=== PATIENT | male | born 1950 | race Caucasian/White ===

== ENCOUNTER 2020-05-15 12:35 | Inpatient (IN) | payer MEDICARE, BC ==
[~2020-05-15] VITALS: Ht 182.9 cm; Wt 64.9 kg
[2020-05-15] MEDS ORDERED: CARI350T PO (12:53)
[2020-05-15] MEDS ORDERED: ASPI-612 PO (12:53)
[2020-05-15] MEDS ORDERED: POLY17PO4 PO (12:53)
[2020-05-15] MEDS ORDERED: pain pump (12:53)
[2020-05-15] MEDS ORDERED: HYDR-4354 PO (12:53)
[2020-05-15] MEDS ORDERED: DIAZ10TA PO (12:53)
[2020-05-15] MEDS ORDERED: TRAZ-182 PO (12:53)
[2020-05-15] MEDS ORDERED: GABAPENTIN 300 MG CAPSULE PO ONE (13:00)
[2020-05-15] MEDS ORDERED: CARISOPRODOL 350 MG TABLET PO ONE (13:00)
[2020-05-15] MEDS ORDERED: GABAPENTIN 300 MG CAPSULE ONE (13:02)
[2020-05-15] MEDS ORDERED: CARISOPRODOL 350 MG TABLET ONE (13:03)
--- NOTE | 2020-05-15 13:09 | NUR ---
PATIENT IS AWAKE AND ALERT. STATES HE HS CHRONIC PAIN ANDCANNOT SIT STILL DUE TO CURRENT PAIN. DR GONZALEZ SPOKE TO HIM. MEDS GIVEN ORDERED. PATIENT IS IN A HOSPITAL GOWN WITH SUICEDE PRECAUTIONS TAKEN. I GAVE HIM JUICE AND CRACKERS AND OFFERED TV BUT HE REFUSED TV.
--- NOTE | 2020-05-15 14:22 | NUR ---
patient states pain has diminished significantly. He is aware of pending admission to hospital. Report given to Shana.
[2020-05-15 14:35] VITALS: BP 143/58
[2020-05-15] MEDS ORDERED: MAGNESIUM HYDROXIDE 30 ML LIQUID UDC PO PRN (15:15)
[2020-05-15] MEDS ORDERED: BLOOD SUGAR DIAGNOSTIC 1 EACH STRIP VI ONE (15:15)
[2020-05-15] MEDS ORDERED: MAG HYDROX/AL HYDROX/SIMETH 30 ML LIQUID UDC PO PRN (15:15)
--- NOTE | 2020-05-15 16:15 | NUR ---
Patient was admitted via Wheelchair from ER with Diagnosis of Psychosis and Danger to Self. Patient is Awake, alert x4 and verbally responsive. No signs of distress noted. No SOB. Afebrile. Chronic generalized Body pain. Patient verbalized that he wanted to End his life that is why he cut his Femoral Artery. Picture was taken from left Thigh Wound with Suture. Patient has No SI/HI noted at this time. All needs attended. Kept clean and comfortable. Safety Precaution Initiated. Papa THAO made aware. Will continue to monitor.
--- NOTE | 2020-05-15 18:00 | NUR ---
Patient in bed, awake. Complaining of Severe chronic Sciatic pain on left leg, patient took Soma and Neurontin at ER and it help his Pain. Paged [facility], awaiting for call back.
--- NOTE | 2020-05-15 18:46 | NUR ---
Called [facility] again spoke with Jaquan, awaiting for call back.
[2020-05-15] MEDS: ACETAMINOPHEN 325 MG TABLET PO PRN (19:19)
--- NOTE | 2020-05-15 19:45 | NUR ---
Patient was advised of his 72hrs hold. He was given his advisement as well as his booklet for "Patient's Right to Mental health Facility". Pt is under the care of Dr. Saenz. will continue to monitor.
[2020-05-15] MEDS: GABAPENTIN 300 MG CAPSULE PO SCH (20:05)
--- NOTE | 2020-05-15 20:05 | NUR ---
RECEIVED PATIENT IN HIS ROOM IN BED. HE IS NOTED A/O X 3. PATIENT NOTED RESTLESS. HE STATED "I AM IN PAIN, I HAVE DOUBLE SCIATIC PAIN AND IS BAD". PATIENT WAS GIVEN GABAPENTIN 300MG AND SOMA 350MG. PATIENT WAS REASSURED FOR HER SAFETY. SAFETY AND FALL PRECAUTION IN PLACE. WILL CONTINUE TO MONITOR.
[2020-05-15] MEDS: CARISOPRODOL 350 MG TABLET PO PRN (20:06)
[2020-05-15 20:26] VITALS: BP 154/47
[2020-05-15] MEDS: LIDOCAINE 5% PATCH TD SCH (20:48)
--- NOTE | 2020-05-15 21:00 | NUR ---
PAIN WAS REASSESSED, PT STATED, "MUCH BETTER". UPON INTERVIEW, HE STATED THAT HIS SEVERE PAIN IS THE REASON THAT HE ATTEMPTED TO END HIS LIFE. HE STATED, "IF I DON'T HAVE PAIN I DON'T FEEL HURTING MYSELF". PT WAS ABLE TO CFS. HE DENIED VH/AH/HI. PT IS ABLE TO VERBALIZED FEELINGS. SAFETY SUICIDAL AND FALL PRECAUTION IN PLACE. WILL CONTINUE WITH Q15 MIN CHECKS.
--- NOTE | 2020-05-15 21:25 | NUR ---
PATIENT IS OUT OF THE UNIT. HE WAS TAKEN BY STAFF VIA WHEELCHAIR TO HAVE A LUMBAR SPINE CT, PT IN NO DISTRESS.
--- NOTE | 2020-05-15 21:50 | NUR ---
PT IS BACK IN THE UNIT. HE IS IN NO ACUTE DISTRESS. WILL CONTINUE TO MONITOR. Addendum: 05/16/20 at 0008 by PK COOK RN PATIENT STATED THAT, "WITH ALL THE MOVEMENT I WENT THROUGH, THE PAIN IS STARTING TO COME BACK. PATIENT WAS GIVEN THE LIDOCAINE PATCH. PATCH WAS APPLIED IN HIS LOWER BACK. WILL CONTINUE TO MONITOR.
[2020-05-15] MEDS: HYDROCODONE/APAP 10-325 MG TABLET PO PRN (22:10)
--- NOTE | 2020-05-15 22:10 | NUR ---
PATIENT STATED THAT IS LOWER BACK PAIN IS STARTING TO COME BACK AND WOULD LIKE A PAIN MEDICATION, HE DESCRIBED HIS PAIN SHARP IN LOWER BACK BILATERAL. HE STATED "IT IS 7/10 IN THE PAIN SCALE. NORCO 10-350MG WAS GIVEN. WILL CONTINUE TO MONITOR.
[2020-05-15] MEDS: TEMAZEPAM 7.5 MG CAPSULE PO PRN (23:43)
[2020-05-16] MEDS: ACETAMINOPHEN 325 MG TABLET PO PRN (01:29)
[2020-05-16] MEDS: CARISOPRODOL 350 MG TABLET PO PRN ×3 (06:12→22:56)
[2020-05-16] MEDS: HYDROCODONE/APAP 10-325 MG TABLET PO PRN ×2 (07:06→13:33)
[2020-05-16 07:19] LABS: BASOPHILS # (AUTO) 0.1 K/uL (0.0-8.0); BASOPHILS % (AUTO) 0.8 % (0.0-2.0); EOSINOPHILS # (AUTO) 0.2 K/uL (0.0-0.7); EOSINOPHILS % (AUTO) 2.7 % (0.0-7.0); HEMATOCRIT 35.9 % (36.7-47.1); HEMOGLOBIN 12.3 g/dL (12.5-16.3); LYMPHOCYTES # (AUTO) 1.7 K/uL (20.0-40.0); MEAN CORPUSCULAR HEMOGLOBIN 32.7 uug (23.8-33.4); MEAN CORPUSCULAR HGB CONC 34 g/dL (32.5-36.3); MEAN CORPUSCULAR VOLUME 95.6 fL (73.0-96.2); MONOCYTES # (AUTO) 0.6 K/uL (2.0-10.0); MONOCYTES % (AUTO) 7.9 % (0.0-11.0); NEUTROPHILS # (AUTO) 4.7 K/uL (1.8-8.9); NEUTROPHILS % (AUTO) 64.6 % (38.5-71.5); PLATELET COUNT (AUTO) 186 K/uL (152-348); RED BLOOD CELL COUNT(AUTO) 3.76 MIL/uL (4.06-5.63); WHITE BLOOD COUNT (AUTO) 7.2 K/uL (3.6-10.2)
[2020-05-16 07:30] VITALS: BP 120/56
[2020-05-16 07:42] LABS: THYROID STIMULATING HORMONE 2.423 mIU/mL (0.358-3.740)
[2020-05-16] MEDS: GABAPENTIN 300 MG CAPSULE PO SCH ×2 (08:23→20:46)
[2020-05-16] MEDS: MIRALAX 17 GM POWD.PACK PO SCH (08:23)
[2020-05-16 08:51] LABS: BILIRUBIN,TOTAL 1.7 mg/dL (0.2-1.0); CREATININE 1.2 mg/dL (0.6-1.3); POTASSIUM 4.6 mmol/L (3.5-5.1); TOTAL PROTEIN, SERUM 6.9 g/dL (6.4-8.2)
[2020-05-16 09:44] LABS: MAGNESIUM 2.1 mg/dL (1.8-2.4); PHOSPHOROUS 3.3 mg/dL (2.5-4.9)
--- NOTE | 2020-05-16 10:25 | NUR ---
FAMILY CONTACT: SW contacted pts Rena ([phone]) for collateral information, treatment and discharge planning. Per , she states that she and pt are currently in the process of a divorce and she states she can no longer manage pt at home due to pts noncompliance with his mental health treatment. states that was diagnosed with Bipolar Disorder 5 years ago and states that pt is in denial and does not accept that he has a mental disorder. She states that pt has attempted suicide 4 times with the last attempt being less than a year ago. states that pt has never been psychiatrically hospitalized and this is his first time. states that she is unsure if pt can return back home. She states that pts mother will be coming from [place] to get him once he is stable for discharge. also stated that pt has been dependent on Opiates for the past 20 years and is currently detoxing from them with the help of a MD.
--- NOTE | 2020-05-16 12:25 | NUR ---
WOUND CARE CONSULT: PT PRESENTS WITH LEFT THIGH CLOSED LACERATION WITH SUTURES, PRESENT ON ADMISSION. RECOMMENDATIONS MADE FOR SKIN PROTECTION. DISCUSSED WITH NURSING STAFF. PT IS AMBULATORY TO BATHROOM AND IS CONTINENT. WILL SEE PRN. ROACH IN AGREEMENT WITH PLAN OF CARE. Addendum: 05/16/20 at 1227 by TRACEE ORR RN Amended: Links added.
--- NOTE | 2020-05-16 12:32 | NUR ---
INITIAL DISCHARGE PLAN: Per pt he wishes to return home [address] [place] [address]. Per Rena [phone] she does not want pt to return home as they are in the middle of a divorce and states she no longer wishes to care after pt. SW will help form a safe and proper discharge in collaboration with .
[2020-05-16] MEDS ORDERED: DULOXETINE 20 MG CAPSULE.DR PO SCH (13:45)
--- NOTE | 2020-05-16 13:46 | NUR ---
patient is in pain, being managed with medications and distractions, encouraged to participate in activities, patient has implanted under skin to left lower quadrant of abdomen pain management pump and spinal stimulator. despite all those medication interventions, patient is in pain. sutures on left thigh are intact, and clean. patient denied suicidal thoughts, continue to monitor as facility protocol.
[2020-05-16 16:00] VITALS: BP 134/73
[2020-05-16] MEDS: DULOXETINE 20 MG CAPSULE.DR PO SCH (16:03)
--- NOTE | 2020-05-16 17:28 | NUR ---
KAYLA, FLEET TECHNICIAN OF NEURO UNITS THE PATIENT HAS IMPLANTED IN THE BACK, CALLED AND STATED SHE WOULD LIKE TO DROP OFF THE HIMS MANAGER FOR NEURO UNITS AND REMOTE FOR THE PAIN PUMP IMPLANTED IN THE LEFT LOWER QUADRANT OF THE ABDOMEN, MATEO, THE FLEET TECHNICIAN TOLD THAT PATIENT CAN GET THE BOLUS DOSE FROM THE PUMP BY REMOTE, SUGGESTED TO KAYLA THAT WE HAVE TO GET ORDER FROM MD, AND NOTIFY MD BEFORE PATIENT IS ALLOWED TO DO ANYTHING WHILE HE IS IN THE FACILITY, SHE DECIDED TO DROP OFF ANYWAY. EXPLAINED TO KAYLA THE POLICY OF MENTAL HEALTH UNIT, PATIENT CAN-NOT HAVE THE STUFF BECAUSE OF FACILITY POLICY. [email or web address] Kayla Birdbox cell phone [phone] Miss Alfaro stated she can give the information about drug and dosage of medication patient gets through pain pump, will endose accordingly to follow up. Addendum: 05/16/20 at 1748 by GALA MTZ RN RN Kayla dropped off marketing proposal specialist of stimulator, marketing proposal specialist of hearing aid, two remote control, placed in contraband lockers, for patient safety, requested to Kayla to provide us the information about drug and dosage of pain medication he is getting through implanted pump, per Kayla she has to log in and get the information.
--- NOTE | 2020-05-16 18:56 | NUR ---
called radiologist name jorge, for the clarification of CT scan of lumbar, states " acute wheel fracture" per radiologist it must be a mistake, they are going to revise the CT scan and give us another report.
[2020-05-16] MEDS: LIDOCAINE 5% PATCH TD SCH (20:46)
[2020-05-16 20:47] VITALS: BP 121/82
[2020-05-16] MEDS: TEMAZEPAM 7.5 MG CAPSULE PO PRN (23:59)
--- NOTE | 2020-05-17 04:23 | NUR ---
GPS: Endorsement received from outgoing nurse that pt CT Scan result was revised and now no acute fracture. Pt was notified of result. Pt a/ox4 and able to make needs known verbally. Pt routine medications given and PRN given for sleep. Effective with noted frequent awaking. Will continue to monitor and anticipate care.
[2020-05-17] MEDS: HYDROCODONE/APAP 10-325 MG TABLET PO PRN ×3 (04:53→20:02)
[2020-05-17 07:30] VITALS: BP 151/78
[2020-05-17] MEDS: MIRALAX 17 GM POWD.PACK PO SCH (09:24)
[2020-05-17] MEDS: GABAPENTIN 300 MG CAPSULE PO SCH ×2 (09:24→20:02)
[2020-05-17] MEDS: CARISOPRODOL 350 MG TABLET PO PRN ×2 (09:24→18:49)
[2020-05-17] MEDS: DULOXETINE 20 MG CAPSULE.DR PO SCH ×2 (09:27→17:20)
[2020-05-17] MEDS: CLONAZEPAM 0.5 MG TABLET PO PRN ×3 (09:27→21:02)
--- NOTE | 2020-05-17 15:00 | NUR ---
Gps/Stone And Concrete Washer-Explained to patient about his hold, verbalized feelings of being upset for the extension , after able to talked to his , patient verbalized understanding . Also verbalized adequate relief.
[2020-05-17 16:00] VITALS: BP 121/73
--- NOTE | 2020-05-17 18:09 | NUR ---
Gps/Senior Technical Program Manager- Bilateral hearing aids in the process of charging, taken from his locker, claimed he is [place]OSH[place] and does not hear what the staff, or Doctors are trying to tell him , wants to use use them per patient. Nerve stimulator control as well as pain management control in his locker.(showed to patient kept in the pt's locker to reassured him)Patient requesting to talk to his Medical Doctor regarding his pain management, claimed he does not have Psych. problem , " it's my pain "
[2020-05-17] MEDS: LIDOCAINE 5% PATCH TD SCH (19:45)
[2020-05-17] MEDS: ACETAMINOPHEN 325 MG TABLET PO PRN (22:59)
[2020-05-17] MEDS: TEMAZEPAM 7.5 MG CAPSULE PO PRN (23:00)
[2020-05-18] MEDS: CLONAZEPAM 0.5 MG TABLET PO PRN ×3 (04:49→19:34)
[2020-05-18] MEDS: HYDROCODONE/APAP 10-325 MG TABLET PO PRN ×3 (04:49→16:03)
--- NOTE | 2020-05-18 06:31 | NUR ---
Received Pt lying down in his bed awake. A+Ox3, states he is here because he was "going through a bad situation, but I'm ok now." Pt stated he felt overwhelmed and depressed due to chronic pain issues and a recent divorce, and he "felt out of control." Pt states he no longer self injurious and agrees to seek staff if feeling increasingly depressed or suicidal. Pt denies SI and verbally contracts for safety. Exhibits anxiety related to his chronic pain issues, Klonopin 0.5mg administered with moderate effect. C/o 10/10 burning generalized body pain, Wood given with moderate effect. Pt awoke at 2300 c/o pain and insomnia, Tylenol 650mg with Restoril 7.5mg administered with good effect. Awoke at 0445 c/o pain and anxiety, Wood 10/325 and klonopin 0.5mg given with good effect. VS stable.
[2020-05-18 07:30] VITALS: BP 118/55
[2020-05-18] MEDS: CARISOPRODOL 350 MG TABLET PO PRN ×2 (08:35→18:31)
[2020-05-18] MEDS: GABAPENTIN 300 MG CAPSULE PO SCH ×2 (08:35→20:09)
[2020-05-18] MEDS: DULOXETINE 20 MG CAPSULE.DR PO SCH ×2 (08:35→17:08)
[2020-05-18] MEDS: MIRALAX 17 GM POWD.PACK PO SCH (08:37)
[2020-05-18] MEDS: ACETAMINOPHEN 325 MG TABLET PO PRN ×2 (12:34→19:42)
--- NOTE | 2020-05-18 15:25 | NUR ---
Gps/Software Support Technician- Seen and observed patient walking slowly on the hallway with FWW., reviewed safety , verbalized adequate relief from his lower back pain .Encouraged to attend his group therapy, claimed cant sit up too long r/t his back pain
[2020-05-18 16:00] VITALS: BP 120/71
[2020-05-18 20:00] VITALS: BP 161/77
[2020-05-18] MEDS: LIDOCAINE 5% PATCH TD SCH (20:09)
[2020-05-18] MEDS: TRAZODONE 50 MG TABLET PO PRN (21:38)
[2020-05-19] MEDS: TEMAZEPAM 7.5 MG CAPSULE PO PRN (01:51)
[2020-05-19] MEDS: HYDROCODONE/APAP 10-325 MG TABLET PO PRN ×2 (01:52→15:31)
[2020-05-19] MEDS: CARISOPRODOL 350 MG TABLET PO PRN ×3 (06:13→23:34)
[2020-05-19 07:30] VITALS: BP 111/60
[2020-05-19] MEDS: MIRALAX 17 GM POWD.PACK PO SCH (09:00)
[2020-05-19] MEDS: GABAPENTIN 300 MG CAPSULE PO SCH ×2 (09:30→20:54)
[2020-05-19] MEDS: DULOXETINE 20 MG CAPSULE.DR PO SCH ×2 (09:30→17:11)
[2020-05-19 16:00] VITALS: BP 150/66
[2020-05-19 20:00] VITALS: BP 99/60
[2020-05-19] MEDS: LIDOCAINE 5% PATCH TD SCH (20:54)
[2020-05-19] MEDS: TRAZODONE 50 MG TABLET PO PRN (23:34)
--- NOTE | 2020-05-20 03:11 | NUR ---
GPS/ Pt A/OX3, C/O PAIN WITH CONTINUE ROUTINE AND PRN PAIN AID AND MUSCLE RELAXANT. COOPERATIVE WITH CARE AND MEDS. NO NEW BEHAVIOR, AND NO SI OR INTENT. PT IS MORE FRIENDLY AND PAIN MANAGED BETTER WITH CURRENT PAIN MEDICATIONS. NO EXCESSIVE BEHAVIOR NOTED, PRN GIVEN FOR MUSCLE CRAMP AND SLEEPING AID. Q/15 HEAD COUNT ONGOING.
[2020-05-20] MEDS: HYDROCODONE/APAP 10-325 MG TABLET PO PRN (05:05)
[2020-05-20 07:57] VITALS: BP 111/52
[2020-05-20] MEDS: GABAPENTIN 300 MG CAPSULE PO SCH ×2 (08:34→20:51)
[2020-05-20] MEDS: MIRALAX 17 GM POWD.PACK PO SCH (08:35)
[2020-05-20] MEDS: DULOXETINE 20 MG CAPSULE.DR PO SCH (08:35)
--- NOTE | 2020-05-20 11:24 | NUR ---
GIA Individual Therapy: This automobile service writer met with the patient to conduct brief individual therapy. Patient presented with euthymic mood and bright affect. Patient shared that he does not feel comfortable here because he feels he "does not belong here". patient expressed his concerns of not wanting to go to a nursing facility just yet in his life. Patient shared that he he thinks he can still e independent at home at least for "another few years". This automobile service writer acknowledged patient feelings and ability for self-dependence. This automobile service writer discussed briefly discharge planning and importance of asking for help when needed.
[2020-05-20 16:12] VITALS: BP 144/66
[2020-05-20] MEDS: DULOXETINE 60 MG CAPSULE.DR PO SCH (16:29)
[2020-05-20] MEDS: ENSURE ENLIVE (VAN) 240 ML LIQUID PO SCH (17:36)
[2020-05-20] MEDS: LIDOCAINE 5% PATCH TD SCH (20:51)
[2020-05-20 21:14] VITALS: BP 144/56
[2020-05-20] MEDS: CARISOPRODOL 350 MG TABLET PO PRN (22:52)
[2020-05-20] MEDS: TRAZODONE 50 MG TABLET PO PRN (22:52)
[2020-05-21] MEDS: HYDROCODONE/APAP 10-325 MG TABLET PO PRN ×2 (02:06→21:37)
--- NOTE | 2020-05-21 03:20 | NUR ---
GPS/ pt was compliant with all care at this time, continue managing current pain with orders and treatment. No excessive c/o and calm when no c/o of pain. Denied SI, HI or intent to harm self or others. Will continue monitor.
[2020-05-21 07:30] VITALS: BP 113/50
[2020-05-21] MEDS: MIRALAX 17 GM POWD.PACK PO SCH (09:00)
[2020-05-21] MEDS: GABAPENTIN 300 MG CAPSULE PO SCH ×2 (09:02→21:37)
[2020-05-21] MEDS: DULOXETINE 60 MG CAPSULE.DR PO SCH ×2 (09:02→17:10)
[2020-05-21] MEDS: ENSURE ENLIVE (VAN) 240 ML LIQUID PO SCH ×2 (09:06→18:03)
[2020-05-21 16:00] VITALS: BP 137/70
[2020-05-21] MEDS ORDERED: OXYCODONE HCL 5 MG TABLET PO PRN (16:30)
[2020-05-21] MEDS: CARISOPRODOL 350 MG TABLET PO PRN (17:10)
--- NOTE | 2020-05-21 18:59 | NUR ---
PATIENT SEEN BY DR. ZAHIDA FLORES, PAIN MANAGEMENT DOTOR WITH ORDER. pATIENT PEDRO TO USE NERVE STIMULATOR AND A NEW ORDER OF OXYIR 10 MG Q 6HRS. PRN.
[2020-05-21 20:47] VITALS: BP 152/73
[2020-05-21] MEDS: LIDOCAINE 5% PATCH TD SCH (21:37)
[2020-05-22] MEDS: TEMAZEPAM 7.5 MG CAPSULE PO PRN (00:19)
[2020-05-22 07:30] VITALS: BP 119/65
[2020-05-22] MEDS: ENSURE ENLIVE (VAN) 240 ML LIQUID PO SCH ×2 (08:00→17:00)
[2020-05-22] MEDS: GABAPENTIN 300 MG CAPSULE PO SCH ×2 (08:44→21:08)
[2020-05-22] MEDS: DULOXETINE 60 MG CAPSULE.DR PO SCH ×2 (08:44→17:31)
[2020-05-22] MEDS: MIRALAX 17 GM POWD.PACK PO SCH (08:47)
[2020-05-22 12:40] LABS: *BILIRUBIN,URIN NEGATIVE (NEGATIVE); *BLOOD, URINE NEGATIVE (NEGATIVE); *CLARITY,URINE CLEAR (CLEAR); *COLOR,URINE YELLOW (YELLOW); *KETONES,URINE NEGATIVE (NEGATIVE); *UROBILINOGEN,URINE 0.2 E.U./dl (NORMAL); LEUKOCYTE ESTERASE ,URINE NEGATIVE (NEGATIVE); NITRITE, URINE NEGATIVE (NEGATIVE); UGLUCOSE NEGATIVE (NEGATIVE)
[2020-05-22 16:00] VITALS: BP 126/69
[2020-05-22] MEDS: HYDROCODONE/APAP 10-325 MG TABLET PO PRN (16:26)
[2020-05-22] MEDS: LIDOCAINE 5% PATCH TD SCH ×2 (18:02→21:08)
[2020-05-22 20:00] VITALS: BP 156/81
[2020-05-22] MEDS: TRAZODONE 50 MG TABLET PO PRN (21:08)
[2020-05-22] MEDS: CARISOPRODOL 350 MG TABLET PO PRN (21:08)
[2020-05-23 07:30] VITALS: BP 121/69
[2020-05-23] MEDS: GABAPENTIN 300 MG CAPSULE PO SCH (08:16)
[2020-05-23] MEDS: DULOXETINE 60 MG CAPSULE.DR PO SCH (08:16)
[2020-05-23] MEDS: MIRALAX 17 GM POWD.PACK PO SCH (08:16)
[2020-05-23] MEDS: ENSURE ENLIVE (VAN) 240 ML LIQUID PO SCH (08:19)
--- NOTE | 2020-05-23 09:00 | NUR ---
Discharge Note: Patient will be discharged back home [address] [place] [address] ([phone]). Patients , Rena ([phone]) is aware and is agreeable with discharge plans and will be picking up the patient at 11AM today to take him back home. Patient is alert and oriented times 4 and is aware and agreeable with discharge plans. Patient presents with euthymic mood and bright affect. Patient denies suicidal or homicidal ideation. Patient is able to provide care for himself and is choosing to return home. Patient will be following up with his primary care physician Dr. Jimbo Lee [address], [place] [address] ([phone]) and has an appointment scheduled on June 11, 2020 at 10:15am. Patient will be following up with his Psychiatrist Dr. Arcadio Rico at [facility] [address] [place] [address] ([phone]) and has an appointment scheduled on May 29, 2020 at 12:45PM Patient is also referred to [facility] ( ) sancho Cosme and will be admitted upon arrival home today. Patient will have medication management, shower assistance, physical therapy, and nurse visits several times a week.
--- NOTE | 2020-05-23 11:15 | NUR ---
1100 Discharged instructions given to patient regarding medication to continue at home, also instructed patient to filled prescription to his pharmacy - patient verbalized understanding,1115 Patient discharged home, picked up by his , patient alert , ox4, denies SI/HI. No delusion. No av hallucination noted.
== END 2020-05-23 11:15 | disposition home health service (06) | DRG 885 ==
LOC: ER 12:35 → GPS 14:24
PROVIDERS: ADMIT Psychiatry & Neurology Psychiatry; ATTEND Hospitalist
DX: F33.2 Major depressive disorder, recurrent severe without psychotic features (principal); R45.851 Suicidal ideations; X78.1XXD Intentional self-harm by knife, subsequent encounter; S71.112D Laceration without foreign body, left thigh, subsequent encounter; Z79.82 Long term (current) use of aspirin; M54.42 Lumbago with sciatica, left side; M54.41 Lumbago with sciatica, right side; G89.4 Chronic pain syndrome; Z96.82 Presence of neurostimulator; E86.0 Dehydration; F12.10 Cannabis abuse, uncomplicated; N28.9 Disorder of kidney and ureter, unspecified; R20.0 Anesthesia of skin; Z79.891 Long term (current) use of opiate analgesic
CPT/HCPCS: 36415; 71045; 72131; 83735; 84100; 84443; 85025; 93005; A4663